=== PATIENT | female | born 1980 | race Caucasian/White ===

== ENCOUNTER 2021-11-04 12:23 | Emergency (ER) | payer OTHER ==
[~2021-11-04 12:23] MED LIST: BENTYL 20MG TAB20 MG PO; FLEXERIL 10 MG10 MG PO; MAGNESIUM CITR296 ML PO; MEDROL4 MG PO; PHENERGAN 12.12.5 MG PR; ZOFRAN ODT 4 MG4 MG PO
[2021-11-04] MEDS ORDERED: ZOFRAN 4 MG TAB4 MG PO (14:30)
== END 2021-11-04 15:33 | disposition home or self-care (01) ==
LOC: ER1 12:23
DX: S06.0X0A Concussion without loss of consciousness, initial encounter (principal); S00.83XA Contusion of other part of head, initial encounter; W20.8XXA Other cause of strike by thrown, projected or falling object, initial encounter
CPT/HCPCS: 70450; 72125; 99283